=== PATIENT | female | born 1960 | race African-American/Black ===

== ENCOUNTER 2019-05-04 16:24 | Emergency (ER) | payer MEDICARE, MEDICAID ==
[2019-05-04 17:06] LABS: #Basophils 0.1 thou/uL (0.0-0.2); #Eosinphils 0.1 thou/uL (0.0-0.7); #Lymphocytes 3.3 thou/uL (1.20-3.40); #Monocytes 0.6 thou/uL (0.11-0.59); #Neutrophils 4.2 thou/uL (1.40-6.50); %Basophils 1.5 % (0.0-1.0); %Lymphocytes 39.8 % (21.0-51.0); %Monocytes 7.4 % (0.0-10.0); %Neutrophils 50.3 % (42.0-75.0); Hemoglobin 16.2 g/dL (12.0-16.0); Mean Corpuscular HGB CONC 33.3 g/dL (32.0-36.0); Mean Corpuscular Hemoglobin 31.5 pg (27.0-31.0); Mean Corpuscular Volume 94.6 fL (78.0-98.0); Mean Platelet Volume 7.2 fL (7.4-10.4); Platelet Count 277 thou/uL (130-400); RBC Distribution Width 12.6 % (11.5-14.5); Red Blood Cell (RBC) Count 5.16 mill/uL (4.20-5.40); White Blood Cell (WBC) Count 8.4 thou/uL (4.8-10.8)
--- NOTE | 2019-05-04 17:30 | RAD ---
PA AND LATERAL CHEST: 05/04/19 HISTORY: Cough for a few weeks. COMPARISON: 08/17/15 study. Heart size and mediastinum within normal limits. The lungs are clear of infiltrates. Calcified granul kierra is seen in the right middle lobe. IMPRESSION: No active intrathoracic disease. POS: [facility]
[2019-05-04 17:33] LABS: ALT (SGPT) 16 U/L (8-55); AST (SGOT) 18 U/L (5-34); Albumin 3.7 g/dL (3.5-5.0); Alkaline Phosphatase 82 U/L (40-110); Anion Gap 13 mmol/L (10-20); BUN (Urea Nitrogen) 14 mg/dL (9.8-20.1); Bilirubin, Total 0.3 mg/dL (0.2-1.2); Calc. Creatinine Clearance 0 mL/min (70-130); Calcium 9.8 mg/dL (7.8-10.44); Carbon Dioxide 23 mmol/L (22-29); Chloride 106 mmol/L (98-107); Estimated GFR-MDRD 79; Glucose 167 mg/dL (70-105); Potassium 3.8 mmol/L (3.5-5.1); Protein, Total 7.7 g/dL (6.0-8.3); Sodium 138 mmol/L (136-145)
[2019-05-04 21:25] LABS: Bacteria/HPF 2+ HPF (None Seen); Bilirubin Negative (Negative); Blood, Urine 1+ (Negative); Clarity Turbid (Clear); Glucose, Urine (Dipstick) Normal (Negative); Leukocyte 500 Leu/uL (Negative); Nitrite Negative (Negative); Protein, Urine (Dipstick) 300 mg/dL (Neg-Trace); RBC/HPF 0-3 HPF (0-3); Urobilinogen Normal mg/dL (Less than 2); WBC/HPF Greater than 50 HPF (0-3)
== END 2019-05-04 21:33 | disposition home or self-care (01) ==
LOC: ERS 16:24
DX: J18.9 Pneumonia, unspecified organism (principal); E11.9 Type 2 diabetes mellitus without complications; I10 Essential (primary) hypertension; G43.909 Migraine, unspecified, not intractable, without status migrainosus; F41.9 Anxiety disorder, unspecified; F17.210 Nicotine dependence, cigarettes, uncomplicated; Z79.899 Other long term (current) drug therapy; Z79.4 Long term (current) use of insulin
CPT/HCPCS: 36415; 71046; 80053; 81003; 81015; 85025

== ENCOUNTER 2020-12-26 16:19 | Emergency (ER) | payer MEDICARE, MEDICAID ==
[~2020-12-26 16:19] MED LIST: Iopamidol-370 76% 500 ML 1 ML ONE
[2020-12-26 19:49] LABS: ALT (SGPT) 13 U/L (8-55); AST (SGOT) 20 U/L (5-34); Alkaline Phosphatase 87 U/L (40-110); Anion Gap 14 mmol/L (10-20); BUN (Urea Nitrogen) 22 mg/dL (9.8-20.1); Bilirubin, Total 0.2 mg/dL (0.2-1.2); Calc. Creatinine Clearance 0 mL/min (70-130); Carbon Dioxide 23 mmol/L (23-31); Chloride 105 mmol/L (98-107); Globulin 3.9 g/dL (2.4-3.5); Glucose 157 mg/dL (80-115); Lipase 112 U/L (8-78); Potassium 5.2 mmol/L (3.5-5.1); Protein, Total 6.9 g/dL (5.8-8.1); Sodium 137 mmol/L (136-145)
== END 2020-12-26 22:00 | disposition home or self-care (01) ==
LOC: ERS 16:19
DX: I80.8 Phlebitis and thrombophlebitis of other sites (principal); L03.211 Cellulitis of face; E11.9 Type 2 diabetes mellitus without complications; I10 Essential (primary) hypertension; G43.909 Migraine, unspecified, not intractable, without status migrainosus; F17.210 Nicotine dependence, cigarettes, uncomplicated
CPT/HCPCS: 70487; 80053; 83605; 83690; 87040; Q9967

== ENCOUNTER 2022-01-21 22:28 | Inpatient (IN) | payer MEDICARE, MEDICAID ==
[2022-01-21] MEDS ORDERED: Morphine 4 MG/ML VIAL ONE (23:06)
[2022-01-21] MEDS ORDERED: Nitroglycerin 0.4 MG TAB 1 EACH ONE ×2 (23:09→23:12)
[2022-01-21] MEDS ORDERED: Furosemide 40 MG/4 ML VIAL ONE (23:09)
[2022-01-21 23:28] LABS: #Basophils 0.1 thou/uL (0.0-0.2); #Eosinphils 0.1 thou/uL (0.0-0.7); #Lymphocytes 1.5 thou/uL (1.20-3.40); #Monocytes 0.6 thou/uL (0.11-0.59); %Basophils 0.6 % (0.0-1.0); %Eosinophils 1.3 % (0.0-10.0); %Lymphocytes 14.1 % (21.0-51.0); %Neutrophils 77.9 % (42.0-75.0); Hemoglobin 12.5 g/dL (12.0-16.0); Mean Corpuscular HGB CONC 32.1 g/dL (32.0-36.0); Mean Corpuscular Hemoglobin 31.2 pg (27.0-31.0); Mean Corpuscular Volume 97.1 fL (78.0-98.0); Mean Platelet Volume 7.6 fL (7.4-10.4); Platelet Count 284 thou/uL (130-400); RBC Distribution Width 13.4 % (11.5-14.5); Red Blood Cell (RBC) Count 4.02 mill/uL (4.20-5.40); White Blood Cell (WBC) Count 10.3 thou/uL (4.8-10.8)
[2022-01-21 23:51] LABS: ALT (SGPT) 10 U/L (8-55); AST (SGOT) 23 U/L (5-34); Albumin 2.3 g/dL (3.4-4.8); Alkaline Phosphatase 98 U/L (40-110); Anion Gap 11 mmol/L (10-20); BUN (Urea Nitrogen) 22 mg/dL (9.8-20.1); Bilirubin, Total 0.2 mg/dL (0.2-1.2); Calc. Creatinine Clearance 0 mL/min (70-130); Calcium 8.5 mg/dL (7.8-10.44); Carbon Dioxide 26 mmol/L (23-31); Chloride 108 mmol/L (98-107); Estimated GFR 31; Globulin 3.4 g/dL (2.4-3.5); Glucose 230 mg/dL (80-115); Magnesium 1.7 mg/dL (1.6-2.6); Potassium 3.1 mmol/L (3.5-5.1); Protein, Total 5.7 g/dL (5.8-8.1); Sodium 142 mmol/L (136-145)
[2022-01-21 23:52] LABS: Troponin I 0.265 ng/mL (< 0.028)
[2022-01-22] MEDS ORDERED: Potassium Chloride 20 MEQ/100 ML PREMIX BAG ONE (00:29)
[2022-01-22] MEDS ORDERED: Nitroglycerin 0.4 MG TAB 1 EACH ONE (00:29)
[2022-01-22] MEDS ORDERED: Potassium Chloride 20 MEQ TAB ONE (00:32)
[2022-01-22] MEDS ORDERED: Ondansetron ODT 4 MG TAB SL PRN (01:30)
[2022-01-22] MEDS ORDERED: Acetaminophen 325 MG TAB PO PRN (01:30)
[2022-01-22] MEDS ORDERED: Ondansetron PF 4 MG/2 ML Vial IVP PRN (01:30)
[2022-01-22] MEDS ORDERED: hydrALAZINE 25 MG TAB ONE (01:32)
[2022-01-22] MEDS ORDERED: Magnesium 2 GM/50 ML BAG (IN WATER) ONE (01:32)
[2022-01-22] MEDS ORDERED: hydrALAZINE 20 MG/ML VIAL ONE (01:37)
[2022-01-22 03:36] VITALS: BMI 27.7
[2022-01-22 04:37] LABS: Troponin I 0.358 ng/mL (< 0.028)
[2022-01-22 07:20] LABS: Troponin I 0.413 ng/mL (< 0.028)
[2022-01-22] MEDS ORDERED: Electrolyte Replacement Protocol 1 EACH FS SCH (08:00)
[2022-01-22] MEDS ORDERED: Electrolyte Replacement Protocol FS PRN (08:00)
[2022-01-22] MEDS ORDERED: Insulin Regular 300 UNITS/3 ML VIAL SC PRN (08:21)
[2022-01-22] MEDS ORDERED: Dextrose 5% in Water 1,000 ML IV PRN (08:21)
[2022-01-22] MEDS ORDERED: Dextrose 50% Abboject 50 ML SYRINGE SLOW IVP PRN (08:21)
[2022-01-22] MEDS ORDERED: Nitroglycerin 0.4 MG TAB (25 Tab Bottle) SL PRN (08:22)
[2022-01-22] MEDS ORDERED: Ipratropium Bromide 2.5 ml Neb NEB PRN (08:25)
[2022-01-22] MEDS ORDERED: tiZANidine HCl 4 MG TAB PO PRN (08:26)
[2022-01-22 08:38] LABS: Anion Gap 12 mmol/L (10-20); BUN (Urea Nitrogen) 20 mg/dL (9.8-20.1); Calc. Creatinine Clearance 50 mL/min (70-130); Calcium 8.4 mg/dL (7.8-10.44); Carbon Dioxide 25 mmol/L (23-31); Chloride 108 mmol/L (98-107); Estimated GFR 39; Glucose 131 mg/dL (80-115); Potassium 3.5 mmol/L (3.5-5.1); Sodium 141 mmol/L (136-145)
[2022-01-22] MEDS ORDERED: Potassium Chloride 20 MEQ TAB PO SCH ×2 (08:45→17:00)
[2022-01-22] MEDS ORDERED: Carvedilol 25 MG TAB PO SCH ×2 (09:00)
[2022-01-22] MEDS ORDERED: Aspirin 325 mg Enteric Coated Tablet PO SCH (09:00)
[2022-01-22] MEDS ORDERED: hydrALAZINE 20 MG/ML VIAL SLOW IVP PRN (09:12)
[2022-01-22] MEDS ORDERED: hydrALAZINE 25 MG TAB PO SCH ×2 (09:12→09:30)
[2022-01-22] MEDS: Aspirin 81 mg Enteric Coated Tablet PO SCH (09:13)
[2022-01-22] MEDS: traMADol HCl 50 MG TAB PO PRN ×2 (09:13→21:33)
[2022-01-22] MEDS ORDERED: Empagliflozin 10 MG TAB PO SCH ×2 (09:15→09:30)
[2022-01-22] MEDS ORDERED: Carvedilol 6.25 MG TAB PO SCH (09:30)
[2022-01-22] MEDS ORDERED: Nicotine 14 MG PATCH TD PRN (09:40)
[2022-01-22] MEDS ORDERED: diphenhydrAMINE 25 MG CAP PO PRN (11:16)
[2022-01-22] MEDS ORDERED: Senokot S 8.6-50 MG TAB PO PRN (11:17)
[2022-01-22] MEDS ORDERED: Calcium Carbonate 500 MG ChewTAB PO PRN (11:17)
[2022-01-22] MEDS ORDERED: Nitroglycerin 2% Ointment 1 INCH/1 GM Packet TOP SCH (14:00)
[2022-01-22] MEDS: hydrALAZINE 25 MG TAB PO SCH ×2 (14:26→21:35)
[2022-01-22] MEDS: Furosemide 20 MG/2 ML VIAL SLOW IVP SCH (14:27)
[2022-01-22] MEDS: Ipratropium Bromide 2.5 ml Neb NEB SCH ×4 (14:44→21:31)
[2022-01-22] MEDS ORDERED: Enoxaparin Sodium 40 MG/0.4 ML SYRINGE SC SCH (21:00)
[2022-01-22] MEDS: Heparin 5,000 UNITS/ML VIAL SC SCH (21:30)
[2022-01-22] MEDS: Erythromycin Base 0.5% Oint 1 GM TUBE EA EYE SCH (21:31)
[2022-01-22] MEDS: Carvedilol 6.25 MG TAB PO SCH (21:34)
[2022-01-22] MEDS: Atorvastatin Calcium 10 MG TAB PO SCH (21:34)
[2022-01-22] MEDS: Methimazole 5 MG TAB PO SCH (21:36)
[2022-01-22] MEDS: Insulin Glargine 30 UNITS/0.3 ML VIAL SC SCH (22:54)
[2022-01-23] MEDS: Ipratropium Bromide 2.5 ml Neb NEB SCH ×2 (02:23→07:25)
[2022-01-23] MEDS: Acetaminophen 325 MG TAB PO PRN (04:21)
[2022-01-23] MEDS: Furosemide 20 MG/2 ML VIAL SLOW IVP SCH ×2 (04:21→13:15)
[2022-01-23 05:14] LABS: #Basophils 0.1 thou/uL (0.0-0.2); #Eosinphils 0.2 thou/uL (0.0-0.7); #Lymphocytes 2.1 thou/uL (1.20-3.40); #Monocytes 0.8 thou/uL (0.11-0.59); #Neutrophils 5.6 thou/uL (1.40-6.50); %Basophils 0.6 % (0.0-1.0); %Eosinophils 2.3 % (0.0-10.0); %Lymphocytes 23.7 % (21.0-51.0); %Monocytes 8.8 % (0.0-10.0); %Neutrophils 64.6 % (42.0-75.0); Hemoglobin 12.3 g/dL (12.0-16.0); Mean Corpuscular HGB CONC 31.9 g/dL (32.0-36.0); Mean Corpuscular Hemoglobin 31.1 pg (27.0-31.0); Mean Corpuscular Volume 97.5 fL (78.0-98.0); Mean Platelet Volume 7.7 fL (7.4-10.4); Platelet Count 298 thou/uL (130-400); RBC Distribution Width 13.8 % (11.5-14.5); Red Blood Cell (RBC) Count 3.95 mill/uL (4.20-5.40); White Blood Cell (WBC) Count 8.7 thou/uL (4.8-10.8)
[2022-01-23 05:59] LABS: Anion Gap 9 mmol/L (10-20); BUN (Urea Nitrogen) 19 mg/dL (9.8-20.1); Calc. Creatinine Clearance 51 mL/min (70-130); Calcium 8.3 mg/dL (7.8-10.44); Carbon Dioxide 27 mmol/L (23-31); Chloride 107 mmol/L (98-107); Estimated GFR 40; Glucose 106 mg/dL (80-115); Magnesium 1.9 mg/dL (1.6-2.6); Potassium 3.2 mmol/L (3.5-5.1); Sodium 140 mmol/L (136-145)
[2022-01-23] MEDS ORDERED: HYDROcodone/Acetaminophen 5/325 mg Tablet PO SCH (06:00)
[2022-01-23] MEDS ORDERED: Potassium Chloride 20 MEQ TAB PO SCH (08:00)
[2022-01-23] MEDS ORDERED: Magnesium 2 GM/50 ML(in water) 2 GM in Premix Bag 1 BAG IVPB SCH (08:00)
[2022-01-23] MEDS: Carvedilol 6.25 MG TAB PO SCH (08:16)
[2022-01-23] MEDS: hydrALAZINE 25 MG TAB PO SCH ×3 (08:17→20:31)
[2022-01-23] MEDS: Empagliflozin 10 MG TAB PO SCH (08:18)
[2022-01-23] MEDS: Aspirin 81 mg Enteric Coated Tablet PO SCH (08:18)
[2022-01-23] MEDS: Heparin 5,000 UNITS/ML VIAL SC SCH ×2 (08:30→20:30)
[2022-01-23] MEDS: traMADol HCl 50 MG TAB PO PRN ×3 (08:35→16:31)
[2022-01-23] MEDS: Methimazole 5 MG TAB PO SCH ×2 (09:21→20:31)
[2022-01-23] MEDS: Erythromycin Base 0.5% Oint 1 GM TUBE EA EYE SCH ×2 (09:22→20:30)
[2022-01-23] MEDS ORDERED: Ipratropium Bromide 2.5 ml Neb NEB PRN (10:17)
[2022-01-23] MEDS ORDERED: Carvedilol 6.25 MG TAB PO SCH (17:00)
[2022-01-23] MEDS: Carvedilol 25 MG TAB PO SCH (20:29)
[2022-01-23] MEDS: Atorvastatin Calcium 10 MG TAB PO SCH (20:32)
[2022-01-23] MEDS: Insulin Glargine 30 UNITS/0.3 ML VIAL SC SCH (20:34)
[2022-01-23] MEDS: Artificial Tear Sol 15 ML BOT EA EYE PRN (20:41)
[2022-01-24 06:11] LABS: Anion Gap 15 mmol/L (10-20); BUN (Urea Nitrogen) 18 mg/dL (9.8-20.1); Calc. Creatinine Clearance 51 mL/min (70-130); Calcium 8.5 mg/dL (7.8-10.44); Carbon Dioxide 23 mmol/L (23-31); Chloride 104 mmol/L (98-107); Estimated GFR 43; Glucose 116 mg/dL (80-115); Potassium 3.1 mmol/L (3.5-5.1); Sodium 139 mmol/L (136-145)
[2022-01-24] MEDS ORDERED: Potassium Chloride 20 MEQ TAB PO SCH (08:15)
[2022-01-24] MEDS: hydrALAZINE 25 MG TAB PO SCH ×3 (09:43→21:24)
[2022-01-24] MEDS: Erythromycin Base 0.5% Oint 1 GM TUBE EA EYE SCH ×2 (09:43→21:23)
[2022-01-24] MEDS: Carvedilol 25 MG TAB PO SCH ×2 (09:43→21:23)
[2022-01-24] MEDS: Heparin 5,000 UNITS/ML VIAL SC SCH ×2 (09:44→21:24)
[2022-01-24] MEDS: Furosemide 20 MG TAB PO SCH (09:44)
[2022-01-24] MEDS: Methimazole 5 MG TAB PO SCH ×2 (09:44→21:37)
[2022-01-24] MEDS: Empagliflozin 10 MG TAB PO SCH (09:44)
[2022-01-24] MEDS: Aspirin 81 mg Enteric Coated Tablet PO SCH (09:44)
[2022-01-24] MEDS: Artificial Tear Sol 15 ML BOT EA EYE PRN (09:45)
[2022-01-24] MEDS ORDERED: HumaLOG 300 UNITS/3 ML VIAL SC PRN (12:55)
[2022-01-24] MEDS ORDERED: Nicotine 7 MG PATCH TD PRN (13:45)
[2022-01-24] MEDS: Acetaminophen 325 MG TAB PO PRN (16:15)
[2022-01-24] MEDS ORDERED: traMADol HCl 50 MG TAB PO PRN (16:16)
[2022-01-24 20:50] VITALS: BP 177/94; TEMP 97.5
[2022-01-24] MEDS: Atorvastatin Calcium 10 MG TAB PO SCH (21:23)
[2022-01-24] MEDS: Insulin Glargine 30 UNITS/0.3 ML VIAL SC SCH (21:25)
[2022-01-25 06:17] LABS: Anion Gap 9 mmol/L (10-20); BUN (Urea Nitrogen) 20 mg/dL (9.8-20.1); Calc. Creatinine Clearance 51 mL/min (70-130); Calcium 8.3 mg/dL (7.8-10.44); Carbon Dioxide 26 mmol/L (23-31); Cardiac Risk 4.5 (Less than 4.5); Chloride 106 mmol/L (98-107); Cholesterol 237 mg/dl (< 200 Desired); Estimated GFR 43; Glucose 117 mg/dL (80-115); HDL Cholesterol 53 mg/dL (>60 Neg Risk); LDL Cholesterol, Calculated 158 mg/dL; Potassium 3.2 mmol/L (3.5-5.1); Sodium 138 mmol/L (136-145); Triglycerides 129 mg/dL (Less than 150)
[2022-01-25] MEDS ORDERED: Potassium Chloride 20 MEQ TAB PO SCH ×2 (08:00)
[2022-01-25] MEDS: Carvedilol 25 MG TAB PO SCH (08:20)
[2022-01-25] MEDS: Empagliflozin 10 MG TAB PO SCH (08:20)
[2022-01-25] MEDS: Erythromycin Base 0.5% Oint 1 GM TUBE EA EYE SCH (08:20)
[2022-01-25] MEDS: Aspirin 81 mg Enteric Coated Tablet PO SCH (08:20)
[2022-01-25] MEDS: Methimazole 5 MG TAB PO SCH (08:21)
[2022-01-25] MEDS: hydrALAZINE 25 MG TAB PO SCH (08:21)
[2022-01-25] MEDS: Heparin 5,000 UNITS/ML VIAL SC SCH (08:21)
[2022-01-25] MEDS: Furosemide 20 MG TAB PO SCH (08:21)
[2022-01-25] MEDS ORDERED: FLU VACC QS2022-23(6MOS UP)/PF 60 MCG/0.5 ML SYRINGE IM ONE ×2 (09:00→12:00)
[2022-01-25] MEDS ORDERED: Rosuvastatin 20 MG TAB PO SCH (21:00)
== END 2022-01-25 12:14 | disposition home or self-care (01) | DRG 280 ==
LOC: ERS 22:28 → NEURO 01-22 01:16
PROVIDERS: ADMIT Internal Medicine; ATTEND Internal Medicine
DX: I13.0 Hypertensive heart and chronic kidney disease with heart failure and stage 1 through stage 4 chronic kidney disease, or unspecified chronic kidney disease (principal); I50.43 Acute on chronic combined systolic (congestive) and diastolic (congestive) heart failure; I21.A1 Myocardial infarction type 2; J96.01 Acute respiratory failure with hypoxia; N17.9 Acute kidney failure, unspecified; I16.1 Hypertensive emergency; I16.0 Hypertensive urgency; E87.6 Hypokalemia; E78.5 Hyperlipidemia, unspecified; E11.22 Type 2 diabetes mellitus with diabetic chronic kidney disease; F17.210 Nicotine dependence, cigarettes, uncomplicated; G89.4 Chronic pain syndrome; Z20.822 Contact with and (suspected) exposure to COVID-19; G43.909 Migraine, unspecified, not intractable, without status migrainosus; M54.50 Low back pain, unspecified; F41.9 Anxiety disorder, unspecified; N18.30 Chronic kidney disease, stage 3 unspecified; E83.42 Hypomagnesemia; E05.00 Thyrotoxicosis with diffuse goiter without thyrotoxic crisis or storm; Z79.84 Long term (current) use of oral hypoglycemic drugs; Z71.6 Tobacco abuse counseling; Z79.899 Other long term (current) drug therapy; Z90.49 Acquired absence of other specified parts of digestive tract; Z98.51 Tubal ligation status; Z82.49 Family history of ischemic heart disease and other diseases of the circulatory system; Z80.3 Family history of malignant neoplasm of breast
CPT/HCPCS: 36415; 36416; 70450; 71045; 80048; 80053; 80061; 83735; 83880; 84439; 84443; 84484; 85025; 93005; 93306; 93798; 94640; 94760; 96374; 96375; 97139; J0360; J1644; J1815; J1940; J2270; J3475; J3480; U0003; U0005

== ENCOUNTER 2022-10-26 11:55 | Observation (INO) | payer OTHER ==
[2022-10-26 12:46] LABS: #Eosinphils 0.1 thou/uL (0.0-0.7); #Monocytes 0.6 thou/uL (0.11-0.59); #Neutrophils 3.6 thou/uL (1.40-6.50); %Basophils 0.3 % (0.0-1.0); %Eosinophils 1.9 % (0.0-10.0); %Monocytes 9.8 % (0.0-10.0); %Neutrophils 58.5 % (42.0-75.0); Hematocrit 29.9 % (36.0-47.0); Mean Corpuscular HGB CONC 33.4 g/dL (32.0-36.0); Mean Corpuscular Hemoglobin 29.4 pg (27.0-31.0); Mean Corpuscular Volume 87.9 fl (78.0-98.0); Mean Platelet Volume 10.3 fL (7.4-10.4); Platelet Count 158 10x3/uL (130-400); RBC Distribution Width 12.7 % (11.5-14.5); White Blood Cell (WBC) Count 6.2 10x3/uL (4.8-10.8)
[2022-10-26 13:09] LABS: ALT (SGPT) 21 U/L (8-55); AST (SGOT) 18 U/L (5-34); Albumin 3.1 g/dL (3.4-4.8); Alkaline Phosphatase 66 U/L (40-110); Anion Gap 15 mmol/L (10-20); BUN (Urea Nitrogen) 85 mg/dL (9.8-20.1); Bilirubin, Total 0.3 mg/dL (0.2-1.2); Calc. Creatinine Clearance 0 mL/min (70-130); Calcium 9.5 mg/dL (7.8-10.44); Carbon Dioxide 20 mmol/L (23-31); Chloride 107 mmol/L (98-107); Estimated GFR 16; Globulin 3.9 g/dL (2.4-3.5); Glucose 287 mg/dL (80-115); Potassium 5.2 mmol/L (3.5-5.1); Sodium 137 mmol/L (136-145)
[2022-10-26 13:27] LABS: Free T4 (Free Thyroxine) 2.67 ng/dL (0.70-1.48); Thyroid Stimulating Hormone Less than 0.0025 uIU/mL (0.35-4.94)
[2022-10-26 13:38] LABS: T4 17.54 ug/dL (4.87-11.72)
[2022-10-26] MEDS ORDERED: Acetaminophen 650 MG Suppository PR PRN (16:34)
[2022-10-26] MEDS ORDERED: Acetaminophen 325 MG TAB PO PRN (16:34)
[2022-10-26] MEDS ORDERED: Ondansetron ODT 4 MG TAB PO PRN (16:34)
[2022-10-26] MEDS ORDERED: Ondansetron PF 4 MG/2 ML Vial IVP PRN (16:34)
[2022-10-26] MEDS ORDERED: Dextrose 5% in Water 1,000 ML IV PRN (17:04)
[2022-10-26] MEDS ORDERED: Insulin Regular 300 UNITS/3 ML VIAL SC PRN (17:04)
[2022-10-26] MEDS ORDERED: Glucagon 1 MG/ML KIT IM PRN (17:04)
[2022-10-26] MEDS ORDERED: Dextrose 50% Abboject 50 ML SYRINGE SLOW IVP PRN (17:04)
[2022-10-26 18:07] LABS: Anion Gap 15 mmol/L (10-20); BUN (Urea Nitrogen) 79 mg/dL (9.8-20.1); Calc. Creatinine Clearance 0 mL/min (70-130); Calcium 9.4 mg/dL (7.8-10.44); Carbon Dioxide 17 mmol/L (23-31); Chloride 111 mmol/L (98-107); Estimated GFR 19; Glucose 379 mg/dL (80-115); Potassium 5.2 mmol/L (3.5-5.1); Sodium 138 mmol/L (136-145)
[2022-10-26 18:20] VITALS: BMI 21.2
[2022-10-26] MEDS: Sodium Chloride 0.9% 1,000 ML IV SCH (18:43)
[2022-10-26] MEDS: Methimazole 5 MG TAB PO SCH (21:02)
[2022-10-26] MEDS ORDERED: Carvedilol 25 MG TAB PO SCH (21:45)
[2022-10-26] MEDS ORDERED: Amlodipine 10 MG TAB PO SCH (21:45)
[2022-10-27 00:31] LABS: Bacteria/HPF 1+ HPF (None Seen); Bilirubin Negative (Negative); Blood, Urine 1+ (Negative); CAUTI Indications for Culture Pelvic or flank pain; Clarity Clear (Clear); Glucose, Urine (Dipstick) Greater than 1000 mg/dL (Negative); Ketone, Urine Negative (Negative); Leukocyte 500 Leu/uL (Negative); Nitrite Negative (Negative); Protein, Urine (Dipstick) 70 mg/dL (Neg-Trace); Specific Gravity, Urine 1.009 (1.002-1.036); Squamous Epithelial 0-3 HPF (0-3); Urobilinogen Normal mg/dL (Less than 2); WBC/HPF Greater than 50 HPF (0-3); pH, Urine 6.5 (5.0-9.0)
[2022-10-27 00:33] LABS: Urine Culture Reflex Yes Yes
[2022-10-27 01:18] LABS: Potassium, Urine 16.1 mmol/L
[2022-10-27] MEDS: Sodium Chloride 0.9% 1,000 ML IV SCH (05:20)
[2022-10-27 07:47] VITALS: TEMP 98.1
[2022-10-27 08:07] LABS: #Eosinphils 0.1 thou/uL (0.0-0.7); #Monocytes 0.6 thou/uL (0.11-0.59); #Neutrophils 2.6 thou/uL (1.40-6.50); %Basophils 0.2 % (0.0-1.0); %Eosinophils 2.5 % (0.0-10.0); %Lymphocytes 33.9 % (21.0-51.0); %Monocytes 12.3 % (0.0-10.0); %Neutrophils 50.9 % (42.0-75.0); Hematocrit 30.1 % (36.0-47.0); Hemoglobin 9.9 g/dL (12.0-16.0); Mean Corpuscular HGB CONC 32.9 g/dL (32.0-36.0); Mean Corpuscular Hemoglobin 29.3 pg (27.0-31.0); Mean Corpuscular Volume 89.1 fl (78.0-98.0); Mean Platelet Volume 9.9 fL (7.4-10.4); Platelet Count 148 10x3/uL (130-400); RBC Distribution Width 12.7 % (11.5-14.5); Red Blood Cell (RBC) Count 3.38 mill/uL (4.20-5.40); White Blood Cell (WBC) Count 5.1 10x3/uL (4.8-10.8)
[2022-10-27 08:32] LABS: Anion Gap 12 mmol/L (10-20); BUN (Urea Nitrogen) 59 mg/dL (9.8-20.1); Calc. Creatinine Clearance 28 mL/min (70-130); Carbon Dioxide 21 mmol/L (23-31); Chloride 112 mmol/L (98-107); Estimated GFR 27; Glucose 160 mg/dL (80-115); Potassium 4.4 mmol/L (3.5-5.1); Sodium 141 mmol/L (136-145)
[2022-10-27] MEDS ORDERED: Amlodipine 10 MG TAB PO SCH (09:00)
[2022-10-27] MEDS ORDERED: Carvedilol 25 MG TAB PO SCH (09:00)
[2022-10-27] MEDS: hydrALAZINE 25 MG TAB PO SCH ×2 (09:18→16:48)
[2022-10-27] MEDS: Methimazole 5 MG TAB PO SCH (09:29)
[2022-10-27 16:43] VITALS: BP 161/73
== END 2022-10-27 17:05 | disposition home or self-care (01) ==
LOC: ERS 11:55 → T4-B 14:49 → INTOOBSV 14:49
PROVIDERS: ADMIT Internal Medicine; ATTEND Internal Medicine
DX: R13.10 Dysphagia, unspecified (principal); E04.1 Nontoxic single thyroid nodule; I13.0 Hypertensive heart and chronic kidney disease with heart failure and stage 1 through stage 4 chronic kidney disease, or unspecified chronic kidney disease; N18.9 Chronic kidney disease, unspecified; I50.30 Unspecified diastolic (congestive) heart failure; E11.9 Type 2 diabetes mellitus without complications; E78.5 Hyperlipidemia, unspecified; E87.5 Hyperkalemia; E87.20 Acidosis, unspecified; E86.1 Hypovolemia; D63.1 Anemia in chronic kidney disease; E05.00 Thyrotoxicosis with diffuse goiter without thyrotoxic crisis or storm; F17.200 Nicotine dependence, unspecified, uncomplicated; Z90.49 Acquired absence of other specified parts of digestive tract; Z98.51 Tubal ligation status; Z79.4 Long term (current) use of insulin; Z79.899 Other long term (current) drug therapy
CPT/HCPCS: 70490; 76770; 80048 ×2; 81001; 82436; 82962; 84133; 84300; 84480; 85025; 87086; 94760; 96360; 96361; 99285; G0378 ×3; 36415; 36416; 80053; 84436; 84439; 84443; J7050

== ENCOUNTER 2022-11-22 08:44 | Inpatient (IN) | payer OTHER ==
[2022-11-22 09:51] LABS: #Monocytes 0.6 thou/uL (0.11-0.59); #Neutrophils 4.2 thou/uL (1.40-6.50); %Monocytes 10.3 % (0.0-10.0); %Neutrophils 76.3 % (42.0-75.0); Hematocrit 33.5 % (36.0-47.0); Hemoglobin 10.8 g/dL (12.0-16.0); Mean Corpuscular HGB CONC 32.2 g/dL (32.0-36.0); Mean Corpuscular Volume 90.1 fl (78.0-98.0); Mean Platelet Volume 9.4 fL (7.4-10.4); Platelet Count 154 10x3/uL (130-400); RBC Distribution Width 13.2 % (11.5-14.5); Red Blood Cell (RBC) Count 3.72 mill/uL (4.20-5.40); White Blood Cell (WBC) Count 5.6 10x3/uL (4.8-10.8)
[2022-11-22] MEDS ORDERED: Ondansetron PF 4 MG/2 ML Vial ONE (10:12)
[2022-11-22 10:19] LABS: ALT (SGPT) 26 U/L (8-55); AST (SGOT) 35 U/L (5-34); Albumin 2.9 g/dL (3.4-4.8); Alkaline Phosphatase 63 U/L (40-110); Anion Gap 15 mmol/L (10-20); BUN (Urea Nitrogen) 30 mg/dL (9.8-20.1); Bilirubin, Total 0.4 mg/dL (0.2-1.2); CK (CPK) 62 U/L (29-168); Calc. Creatinine Clearance 0 mL/min (70-130); Calcium 9.4 mg/dL (7.8-10.44); Carbon Dioxide 18 mmol/L (23-31); Chloride 108 mmol/L (98-107); Estimated GFR 40; Globulin 3.8 g/dL (2.4-3.5); Glucose 230 mg/dL (80-115); Lipase 127 U/L (8-78); Magnesium 1.5 mg/dL (1.6-2.6); Potassium 3.8 mmol/L (3.5-5.1); Protein, Total 6.7 g/dL (5.8-8.1); Sodium 137 mmol/L (136-145)
[2022-11-22 10:35] LABS: T4 16.12 ug/dL (4.87-11.72); Thyroid Stimulating Hormone Less than 0.0025 uIU/mL (0.35-4.94)
[2022-11-22] MEDS ORDERED: Iopamidol-370 76% 500 ML MDV (1 ML CHARGE) ONE (11:08)
[2022-11-22 11:16] LABS: Bacteria/HPF 1+ HPF (None Seen); Bilirubin Negative (Negative); Blood, Urine 2+ (Negative); CAUTI Indications for Culture Dysuria,urgency,freq; Clarity Clear (Clear); Glucose, Urine (Dipstick) 500 mg/dL (Negative); Ketone, Urine 10 mg/dL (Negative); Leukocyte 250 Leu/uL (Negative); Nitrite Negative (Negative); Protein, Urine (Dipstick) 600 mg/dL (Neg-Trace); Specific Gravity, Urine 1.019 (1.002-1.036); Squamous Epithelial 0-3 HPF (0-3); Urobilinogen Normal mg/dL (Less than 2); pH, Urine 6.5 (5.0-9.0)
[2022-11-22 11:19] LABS: Urine Culture Reflex No No
[2022-11-22] MEDS ORDERED: cefTRIAXone (ROCEPHIN) 1 GM VIAL ONE (11:39)
[2022-11-22 11:41] LABS: SARS-CoV-2 NAA Rapid Test DETECTED (NotDetected)
[2022-11-22] MEDS ORDERED: Acetaminophen 325 MG TAB PO PRN (14:19)
[2022-11-22] MEDS ORDERED: Glucagon 1 MG/ML KIT IM PRN (14:19)
[2022-11-22] MEDS ORDERED: Ondansetron PF 4 MG/2 ML Vial IVP PRN (14:19)
[2022-11-22] MEDS ORDERED: Dextrose 5% in Water 1,000 ML IV PRN (14:19)
[2022-11-22] MEDS ORDERED: HumaLOG 300 UNITS/3 ML VIAL SC PRN ×2 (14:19)
[2022-11-22] MEDS ORDERED: Ondansetron ODT 4 MG TAB PO PRN (14:19)
[2022-11-22] MEDS ORDERED: Dextrose 50% Abboject 50 ML SYRINGE SLOW IVP PRN (14:19)
[2022-11-22] MEDS ORDERED: Communication Order-Pharmacy FS SCH (14:19)
[2022-11-22] MEDS ORDERED: Artificial Tear Sol 15 ML BOT EA EYE PRN (14:26)
[2022-11-22] MEDS ORDERED: hydrALAZINE 20 MG/ML VIAL SLOW IVP PRN ×2 (14:27→16:13)
[2022-11-22] MEDS ORDERED: guaiFENesin/Codeine 200 mg/20 mg 10 ml Cup PO PRN (14:29)
[2022-11-22] MEDS ORDERED: Magnesium 2 GM/50 ML(in water) 2 GM in Premix Bag 1 BAG IVPB SCH (14:30)
[2022-11-22] MEDS ORDERED: cefTRIAXone\\ROCEPHIN 1 GM in Sodium Chloride 0.9% 100 ML IVPB SCH (14:30)
[2022-11-22] MEDS ORDERED: Sodium Bicarb 50 MEQ/50 ML Abboject 8.4% SYRINGE IVP SCH (14:45)
[2022-11-22 15:16] VITALS: BMI 20.3
[2022-11-22] MEDS: Lactated Ringer's 1,000 ML IV SCH (15:46)
[2022-11-22] MEDS: hydrALAZINE 25 MG TAB PO SCH ×2 (15:53→21:56)
[2022-11-22] MEDS ORDERED: Sodium Bicarb 50 MEQ/50 ML VIAL IVP SCH (16:00)
[2022-11-22] MEDS: Benzonatate 100 MG CAP PO SCH ×2 (16:23→21:55)
[2022-11-22] MEDS: HumaLOG 300 UNITS/3 ML VIAL SC SCH (16:24)
[2022-11-22 17:46] LABS: Glucose 204 mg/dL (80-115)
[2022-11-22 21:42] LABS: Glucose 186 mg/dL (80-115)
[2022-11-22] MEDS: Insulin Glargine 30 UNITS/0.3 ML VIAL SC SCH (21:54)
[2022-11-22] MEDS: Sacubitril 24MG/Valsartan 26 MG TAB PO SCH (21:55)
[2022-11-22] MEDS: metroNIDAZOLE 500 MG in Premix Bag 1 BAG IVPB SCH (21:55)
[2022-11-22] MEDS: Carvedilol 25 MG TAB PO SCH (21:56)
[2022-11-22] MEDS: Famotidine 20 MG TAB PO SCH (21:56)
[2022-11-22] MEDS: Atorvastatin Calcium 20 MG TAB PO SCH (21:56)
[2022-11-22] MEDS: Methimazole 5 MG TAB PO SCH (21:56)
[2022-11-22] MEDS: Heparin 5,000 UNITS/ML VIAL SC SCH (21:57)
[2022-11-23] MEDS: Lactated Ringer's 1,000 ML IV SCH ×2 (04:34→20:32)
[2022-11-23] MEDS: HYDROcodone/Acetaminophen 5/325 mg Tablet PO PRN ×2 (06:11→20:43)
[2022-11-23] MEDS: metroNIDAZOLE 500 MG in Premix Bag 1 BAG IVPB SCH ×3 (06:17→20:51)
[2022-11-23 06:43] LABS: #Monocytes 0.5 thou/uL (0.11-0.59); #Neutrophils 2.3 thou/uL (1.40-6.50); %Monocytes 10.9 % (0.0-10.0); %Neutrophils 53.9 % (42.0-75.0); Hemoglobin 9.9 g/dL (12.0-16.0); Mean Corpuscular HGB CONC 31.9 g/dL (32.0-36.0); Mean Corpuscular Hemoglobin 28.9 pg (27.0-31.0); Mean Corpuscular Volume 90.6 fl (78.0-98.0); Mean Platelet Volume 9.7 fL (7.4-10.4); Platelet Count 148 10x3/uL (130-400); RBC Distribution Width 13.3 % (11.5-14.5); Red Blood Cell (RBC) Count 3.42 mill/uL (4.20-5.40); White Blood Cell (WBC) Count 4.2 10x3/uL (4.8-10.8)
[2022-11-23 06:53] LABS: Hemoglobin A1c 7.8 % (4.0-6.0)
[2022-11-23 07:11] LABS: Anion Gap 11 mmol/L (10-20); BUN (Urea Nitrogen) 32 mg/dL (9.8-20.1); Calc. Creatinine Clearance 37 mL/min (70-130); Calcium 8.5 mg/dL (7.8-10.44); Carbon Dioxide 18 mmol/L (23-31); Cardiac Risk 4.3 (Less than 4.5); Chloride 111 mmol/L (98-107); Cholesterol 78 mg/dl (< 200 Desired); Estimated GFR 40; Glucose 134 mg/dL (80-115); HDL Cholesterol 18 mg/dL (>60 Neg Risk); LDL Cholesterol, Calculated 28 mg/dL; Magnesium 1.9 mg/dL (1.6-2.6); Potassium 3.4 mmol/L (3.5-5.1); Sodium 137 mmol/L (136-145); Triglycerides 160 mg/dL (Less than 150)
[2022-11-23 07:52] LABS: Glucose 134 mg/dL (80-115)
[2022-11-23] MEDS: Heparin 5,000 UNITS/ML VIAL SC SCH ×2 (08:38→20:30)
[2022-11-23] MEDS: Amlodipine 10 MG TAB PO SCH (08:43)
[2022-11-23] MEDS: Furosemide 20 MG TAB PO SCH (08:43)
[2022-11-23] MEDS: Carvedilol 25 MG TAB PO SCH ×2 (08:43→20:29)
[2022-11-23] MEDS: Famotidine 20 MG TAB PO SCH ×2 (08:43→20:29)
[2022-11-23] MEDS: Empagliflozin 10 MG TAB PO SCH (08:43)
[2022-11-23] MEDS: hydrALAZINE 25 MG TAB PO SCH ×3 (08:43→20:30)
[2022-11-23] MEDS: Benzonatate 100 MG CAP PO SCH ×3 (08:44→20:29)
[2022-11-23] MEDS: Potassium Chloride 20 MEQ TAB PO SCH (08:44)
[2022-11-23] MEDS: Aspirin 81 mg Enteric Coated Tablet PO SCH (08:44)
[2022-11-23] MEDS: HumaLOG 300 UNITS/3 ML VIAL SC SCH ×3 (10:36→17:18)
[2022-11-23] MEDS: Sacubitril 24MG/Valsartan 26 MG TAB PO SCH ×2 (10:36→20:31)
[2022-11-23] MEDS: Methimazole 5 MG TAB PO SCH ×2 (10:36→20:30)
[2022-11-23 11:56] LABS: Glucose 163 mg/dL (80-115)
[2022-11-23] MEDS: cefTRIAXone\\ROCEPHIN 1 GM in Sodium Chloride 0.9% 100 ML IVPB SCH (12:51)
[2022-11-23] MEDS: Sodium Bicarbonate Tab 325 MG TAB PO SCH ×2 (15:04→20:32)
[2022-11-23 15:47] LABS: Campy jejuni + coli by PCR Negative (Negative); STEC Shiga Toxin 1+2 Negative (Negative); Salmonella spp. by PCR Negative (Negative); Shigella spp + EIEC by PCR Negative (Negative)
[2022-11-23] MEDS: Dicyclomine 10 MG CAP PO SCH ×2 (17:18→20:29)
[2022-11-23] MEDS: Atorvastatin Calcium 20 MG TAB PO SCH (20:29)
[2022-11-23] MEDS: Cholestyramine/Aspartame 4 gm Packet PO SCH (20:31)
[2022-11-23] MEDS: Insulin Glargine 30 UNITS/0.3 ML VIAL SC SCH (20:49)
[2022-11-24] MEDS: metroNIDAZOLE 500 MG in Premix Bag 1 BAG IVPB SCH ×3 (05:05→21:27)
[2022-11-24 08:18] LABS: #Monocytes 0.4 thou/uL (0.11-0.59); #Neutrophils 2.6 thou/uL (1.40-6.50); %Lymphocytes 26.1 % (21.0-51.0); %Monocytes 9.8 % (0.0-10.0); %Neutrophils 63.9 % (42.0-75.0); Hematocrit 28.6 % (36.0-47.0); Hemoglobin 9.2 g/dL (12.0-16.0); Mean Corpuscular HGB CONC 32.2 g/dL (32.0-36.0); Mean Corpuscular Hemoglobin 28.8 pg (27.0-31.0); Mean Corpuscular Volume 89.7 fl (78.0-98.0); Mean Platelet Volume 10.1 fL (7.4-10.4); Platelet Count 138 10x3/uL (130-400); RBC Distribution Width 13.3 % (11.5-14.5); Red Blood Cell (RBC) Count 3.19 mill/uL (4.20-5.40); White Blood Cell (WBC) Count 4.1 10x3/uL (4.8-10.8)
[2022-11-24 08:27] LABS: Glucose 110 mg/dL (80-115)
[2022-11-24 08:33] LABS: Anion Gap 11 mmol/L (10-20); BUN (Urea Nitrogen) 30 mg/dL (9.8-20.1); Calc. Creatinine Clearance 36 mL/min (70-130); Calcium 8.5 mg/dL (7.8-10.44); Carbon Dioxide 20 mmol/L (23-31); Cardiac Risk 3.9 (Less than 4.5); Chloride 112 mmol/L (98-107); Cholesterol 75 mg/dl (< 200 Desired); Estimated GFR 38; Glucose 114 mg/dL (80-115); HDL Cholesterol 19 mg/dL (>60 Neg Risk); Iron 66 ug/dL (50-170); Iron Binding Capacity, Total 114 mcg/dL (265-497); LDL Cholesterol, Calculated 24 mg/dL; Magnesium 1.8 mg/dL (1.6-2.6); Potassium 3.6 mmol/L (3.5-5.1); Sodium 139 mmol/L (136-145); Triglycerides 159 mg/dL (Less than 150)
[2022-11-24] MEDS: Sodium Bicarbonate Tab 325 MG TAB PO SCH (09:18)
[2022-11-24] MEDS: Zinc Sulfate 220 MG CAP PO SCH (09:21)
[2022-11-24] MEDS: Cholecalciferol (Vitamin D3) 400 UNITS TAB PO SCH (09:21)
[2022-11-24] MEDS: Aspirin 81 mg Enteric Coated Tablet PO SCH (09:21)
[2022-11-24] MEDS: Empagliflozin 10 MG TAB PO SCH (09:21)
[2022-11-24] MEDS: Dicyclomine 10 MG CAP PO SCH ×4 (09:21→21:26)
[2022-11-24] MEDS: Benzonatate 100 MG CAP PO SCH ×3 (09:21→21:24)
[2022-11-24] MEDS: Potassium Chloride 20 MEQ TAB PO SCH (09:21)
[2022-11-24] MEDS: hydrALAZINE 25 MG TAB PO SCH ×3 (09:22→21:25)
[2022-11-24] MEDS: Folic Acid 1 MG TAB PO SCH (09:22)
[2022-11-24] MEDS: Amlodipine 10 MG TAB PO SCH (09:22)
[2022-11-24] MEDS: Famotidine 20 MG TAB PO SCH ×2 (09:22→21:26)
[2022-11-24] MEDS: Multivit, Therapeutic 1 TAB PO SCH (09:22)
[2022-11-24] MEDS: Furosemide 20 MG TAB PO SCH (09:22)
[2022-11-24] MEDS: Carvedilol 25 MG TAB PO SCH ×2 (09:22→21:26)
[2022-11-24] MEDS: Heparin 5,000 UNITS/ML VIAL SC SCH ×2 (09:22→21:28)
[2022-11-24] MEDS: HumaLOG 300 UNITS/3 ML VIAL SC SCH ×4 (09:23→17:22)
[2022-11-24] MEDS: Methimazole 5 MG TAB PO SCH ×2 (09:23→21:22)
[2022-11-24] MEDS: Sacubitril 24MG/Valsartan 26 MG TAB PO SCH ×2 (09:26→21:22)
[2022-11-24] MEDS: cefTRIAXone\\ROCEPHIN 1 GM in Sodium Chloride 0.9% 100 ML IVPB SCH (11:30)
[2022-11-24] MEDS: Cholestyramine/Aspartame 4 gm Packet PO SCH ×2 (11:30→21:24)
[2022-11-24] MEDS: Lactated Ringer's 1,000 ML IV SCH ×2 (16:33→21:20)
[2022-11-24] MEDS: Floranex 1 GM Packet PO SCH ×2 (16:33→21:21)
[2022-11-24] MEDS: Atorvastatin Calcium 20 MG TAB PO SCH (21:26)
[2022-11-24] MEDS: Insulin Glargine 30 UNITS/0.3 ML VIAL SC SCH (21:31)
[2022-11-25] MEDS: metroNIDAZOLE 500 MG in Premix Bag 1 BAG IVPB SCH ×2 (06:13→14:13)
[2022-11-25 07:31] VITALS: BP 155/74; TEMP 99
[2022-11-25 08:17] LABS: #Monocytes 0.3 thou/uL (0.11-0.59); #Neutrophils 1.3 thou/uL (1.40-6.50); %Basophils 0.4 % (0.0-1.0); %Lymphocytes 38.3 % (21.0-51.0); %Monocytes 11.5 % (0.0-10.0); %Neutrophils 49.4 % (42.0-75.0); Hematocrit 30.2 % (36.0-47.0); Hemoglobin 9.5 g/dL (12.0-16.0); Mean Corpuscular HGB CONC 31.5 g/dL (32.0-36.0); Mean Corpuscular Volume 92.1 fl (78.0-98.0); Mean Platelet Volume 10.1 fL (7.4-10.4); Platelet Count 122 10x3/uL (130-400); RBC Distribution Width 13.5 % (11.5-14.5); Red Blood Cell (RBC) Count 3.28 mill/uL (4.20-5.40); White Blood Cell (WBC) Count 2.6 10x3/uL (4.8-10.8)
[2022-11-25 08:34] LABS: Glucose 116 mg/dL (80-115)
[2022-11-25 08:39] LABS: Anion Gap 14 mmol/L (10-20); BUN (Urea Nitrogen) 23 mg/dL (9.8-20.1); Calc. Creatinine Clearance 42 mL/min (70-130); Calcium 8.6 mg/dL (7.8-10.44); Carbon Dioxide 17 mmol/L (23-31); Chloride 115 mmol/L (98-107); Estimated GFR 46; Glucose 116 mg/dL (80-115); Potassium 3.6 mmol/L (3.5-5.1); Sodium 142 mmol/L (136-145)
[2022-11-25] MEDS: Sacubitril 24MG/Valsartan 26 MG TAB PO SCH (09:29)
[2022-11-25] MEDS: Benzonatate 100 MG CAP PO SCH ×2 (09:30→15:36)
[2022-11-25] MEDS: Methimazole 5 MG TAB PO SCH (09:30)
[2022-11-25] MEDS: Heparin 5,000 UNITS/ML VIAL SC SCH (09:30)
[2022-11-25] MEDS: Multivit, Therapeutic 1 TAB PO SCH (09:31)
[2022-11-25] MEDS: Dicyclomine 10 MG CAP PO SCH ×2 (09:31→15:37)
[2022-11-25] MEDS: Folic Acid 1 MG TAB PO SCH (09:31)
[2022-11-25] MEDS: Cholecalciferol (Vitamin D3) 400 UNITS TAB PO SCH (09:31)
[2022-11-25] MEDS: Carvedilol 25 MG TAB PO SCH (09:31)
[2022-11-25] MEDS: Furosemide 20 MG TAB PO SCH (09:31)
[2022-11-25] MEDS: Zinc Sulfate 220 MG CAP PO SCH (09:31)
[2022-11-25] MEDS: Aspirin 81 mg Enteric Coated Tablet PO SCH (09:31)
[2022-11-25] MEDS: Empagliflozin 10 MG TAB PO SCH (09:31)
[2022-11-25] MEDS: Famotidine 20 MG TAB PO SCH (09:31)
[2022-11-25] MEDS: HumaLOG 300 UNITS/3 ML VIAL SC SCH ×2 (09:32→12:13)
[2022-11-25] MEDS: Floranex 1 GM Packet PO SCH ×2 (09:32→15:35)
[2022-11-25] MEDS: hydrALAZINE 25 MG TAB PO SCH ×2 (09:32→15:37)
[2022-11-25] MEDS: Amlodipine 10 MG TAB PO SCH (09:32)
[2022-11-25] MEDS: Potassium Chloride 20 MEQ TAB PO SCH (09:32)
[2022-11-25] MEDS: Lactated Ringer's 1,000 ML IV SCH (09:33)
[2022-11-25] MEDS: HYDROcodone/Acetaminophen 5/325 mg Tablet PO PRN (09:55)
[2022-11-25] MEDS: Cholestyramine/Aspartame 4 gm Packet PO SCH (10:30)
[2022-11-25] MEDS: cefTRIAXone\\ROCEPHIN 1 GM in Sodium Chloride 0.9% 100 ML IVPB SCH (12:13)
== END 2022-11-25 16:44 | disposition home or self-care (01) | DRG 178 ==
LOC: ERS 08:44 → ERHOLD 12:08 → T4-B 14:59 → OBSVTOIN 11-25 13:30
PROVIDERS: ADMIT Hospitalist; ATTEND Hospitalist
DX: U07.1 COVID-19 (principal); E87.20 Acidosis, unspecified; N17.9 Acute kidney failure, unspecified; N39.0 Urinary tract infection, site not specified; I50.32 Chronic diastolic (congestive) heart failure; I11.0 Hypertensive heart disease with heart failure; H54.7 Unspecified visual loss; E04.9 Nontoxic goiter, unspecified; E11.9 Type 2 diabetes mellitus without complications; E05.00 Thyrotoxicosis with diffuse goiter without thyrotoxic crisis or storm; F19.10 Other psychoactive substance abuse, uncomplicated; E87.6 Hypokalemia; E07.89 Other specified disorders of thyroid; F41.9 Anxiety disorder, unspecified; F32.A Depression, unspecified; Z98.51 Tubal ligation status; Z79.4 Long term (current) use of insulin; Z79.2 Long term (current) use of antibiotics; Z79.899 Other long term (current) drug therapy; Z90.49 Acquired absence of other specified parts of digestive tract; Z98.890 Other specified postprocedural states; Z82.49 Family history of ischemic heart disease and other diseases of the circulatory system
CPT/HCPCS: 36415; 36416; 71045; 74177; 80053; 80061; 81001; 82550; 82728; 82947; 83036; 83540; 83550; 83605; 83690; 83735; 84436; 84443; 85025; 87086; 87324; 87328; 87329; 87449; 87505; 93005; 96361; 96374; 96375; J0696; J1644; J1815; J2405; J3475; J3490; J7120; Q9967

== ENCOUNTER 2022-11-28 21:02 | Emergency (ER) | payer OTHER ==
[2022-11-28 22:39] LABS: Hematocrit 28.9 % (36.0-47.0); Hemoglobin 9.3 g/dL (12.0-16.0); Mean Corpuscular HGB CONC 32.2 g/dL (32.0-36.0); Mean Corpuscular Hemoglobin 28.7 pg (27.0-31.0); Mean Corpuscular Volume 89.2 fl (78.0-98.0); Mean Platelet Volume 10.5 fL (7.4-10.4); Platelet Count 164 10x3/uL (130-400); RBC Distribution Width 13.2 % (11.5-14.5); Red Blood Cell (RBC) Count 3.24 mill/uL (4.20-5.40); White Blood Cell (WBC) Count 4.1 10x3/uL (4.8-10.8)
[2022-11-28 22:48] LABS: Delete Auto Diff?? YES; Manual Diff?? YES
[2022-11-28 23:04] LABS: ALT (SGPT) 101 U/L (8-55); AST (SGOT) 88 U/L (5-34); Albumin 2.6 g/dL (3.4-4.8); Alkaline Phosphatase 61 U/L (40-110); Anion Gap 12 mmol/L (10-20); BUN (Urea Nitrogen) 18 mg/dL (9.8-20.1); Bilirubin, Total 0.2 mg/dL (0.2-1.2); Calc. Creatinine Clearance 0 mL/min (70-130); Calcium 8.3 mg/dL (7.8-10.44); Carbon Dioxide 22 mmol/L (23-31); Chloride 113 mmol/L (98-107); Estimated GFR 37; Globulin 3.2 g/dL (2.4-3.5); Glucose 162 mg/dL (80-115); Magnesium 1.5 mg/dL (1.6-2.6); Potassium 3.5 mmol/L (3.5-5.1); Protein, Total 5.8 g/dL (5.8-8.1); Sodium 143 mmol/L (136-145)
[2022-11-28 23:08] LABS: Anisocytosis SLIGHT = 6-15 cells HPF (0-5); Band 6 % (5-11); CellaVision Operator ID LAB.JMM; Lymphocytes 15 % (21-51); Monocytes 12 % (0-10); Neutrophil 67 % (42-75); Platelet Adequacy Comment Platelets Normal; Smudge Cells 12.9 %; Total Cell Count 101
[2022-11-29] MEDS ORDERED: Loperamide HCl 2 MG CAP ONE (00:02)
[2022-11-29 01:31] LABS: Bacteria/HPF None Seen HPF (None Seen); Bilirubin Negative (Negative); Blood, Urine 1+ (Negative); CAUTI Indications for Culture Dysuria,urgency,freq; Clarity Clear (Clear); Glucose, Urine (Dipstick) 300 mg/dL (Negative); Ketone, Urine Negative (Negative); Leukocyte Negative Leu/uL (Negative); Nitrite Negative (Negative); Protein, Urine (Dipstick) 300 mg/dL (Neg-Trace); RBC/HPF 0-3 HPF (0-3); Specific Gravity, Urine 1.014 (1.002-1.036); Squamous Epithelial 0-3 HPF (0-3); Urine Culture Reflex No No; Urobilinogen Normal mg/dL (Less than 2); WBC/HPF 0-3 HPF (0-3); pH, Urine 6.5 (5.0-9.0)
== END 2022-11-29 02:05 | disposition home or self-care (01) ==
LOC: ERS 21:02
DX: K52.9 Noninfective gastroenteritis and colitis, unspecified (principal); E11.9 Type 2 diabetes mellitus without complications; I10 Essential (primary) hypertension; F17.210 Nicotine dependence, cigarettes, uncomplicated; Z79.4 Long term (current) use of insulin; Z79.899 Other long term (current) drug therapy
CPT/HCPCS: 80053; 81001; 83605; 83735; 84436; 84443; 85025; 96360

== ENCOUNTER 2022-12-17 09:38 | Inpatient (IN) | payer OTHER ==
[2022-12-17] MEDS ORDERED: Iopamidol 370 76% 100 ML VIAL ONE (10:32)
[2022-12-17 10:53] LABS: SARS-CoV-2 NAA Rapid Test Not Detected (NotDetected)
[2022-12-17 11:13] LABS: #Monocytes 0.4 thou/uL (0.11-0.59); #Neutrophils 3.3 thou/uL (1.40-6.50); %Lymphocytes 23.3 % (21.0-51.0); %Monocytes 8.8 % (0.0-10.0); %Neutrophils 67.7 % (42.0-75.0); Hematocrit 26.3 % (36.0-47.0); Hemoglobin 8.2 g/dL (12.0-16.0); Mean Corpuscular HGB CONC 31.2 g/dL (32.0-36.0); Mean Corpuscular Hemoglobin 29.7 pg (27.0-31.0); Mean Corpuscular Volume 95.3 fl (78.0-98.0); Mean Platelet Volume 9.8 fL (7.4-10.4); Platelet Count 171 10x3/uL (130-400); RBC Distribution Width 16.1 % (11.5-14.5); Red Blood Cell (RBC) Count 2.76 mill/uL (4.20-5.40); White Blood Cell (WBC) Count 4.9 10x3/uL (4.8-10.8)
[2022-12-17 11:29] LABS: Actual Bicarbonate (HCO3v) 17.9 mEq/L (22-28); Base Excess -7.6 mEq/L (-2.0 to +3.0); Calcium, Ionized (venous) 1.06 mmol/L (1.16-1.32); Chloride (VBG) 112 mmol/L (98-106); Hematocrit-VBG 31 % (36.0-47.0); Hemoglobin (Hb) 10.6 g/dL (11.7-16.0); Potassium (VBG) 2.72 mmol/L (3.70-5.30); Sodium 141.2 mmol/L (133-146); pH (venous) 7.311 (7.32-7.43)
[2022-12-17 11:42] LABS: ALT (SGPT) 17 U/L (8-55); AST (SGOT) 22 U/L (5-34); Albumin 2.4 g/dL (3.4-4.8); Alkaline Phosphatase 67 U/L (40-110); Anion Gap 10 mmol/L (10-20); BUN (Urea Nitrogen) 17 mg/dL (9.8-20.1); Bilirubin, Total 0.3 mg/dL (0.2-1.2); CK (CPK) 52 U/L (29-168); Calc. Creatinine Clearance 0 mL/min (70-130); Calcium 7.2 mg/dL (7.8-10.44); Carbon Dioxide 18 mmol/L (23-31); Chloride 116 mmol/L (98-107); Estimated GFR 89; Globulin 2.8 g/dL (2.4-3.5); Glucose 172 mg/dL (80-115); Lipase 93 U/L (8-78); Magnesium 1.3 mg/dL (1.6-2.6); Protein, Total 5.2 g/dL (5.8-8.1); Sodium 142 mmol/L (136-145)
[2022-12-17 11:46] LABS: Troponin I 0.078 ng/mL (< 0.028)
[2022-12-17 11:48] LABS: Potassium 2.4 mmol/L (3.5-5.1)
[2022-12-17 12:02] LABS: Bacteria/HPF None Seen HPF (None Seen); Bilirubin Negative (Negative); Blood, Urine 1+ (Negative); CAUTI Indications for Culture Alt mental st,lethar; Clarity Clear (Clear); Glucose, Urine (Dipstick) 300 mg/dL (Negative); Ketone, Urine Negative (Negative); Leukocyte Negative Leu/uL (Negative); Nitrite Negative (Negative); Protein, Urine (Dipstick) 200 mg/dL (Neg-Trace); RBC/HPF None Seen HPF (0-3); Specific Gravity, Urine 1.007 (1.002-1.036); Squamous Epithelial None Seen HPF (0-3); Urobilinogen Normal mg/dL (Less than 2); WBC/HPF 0-3 HPF (0-3)
[2022-12-17 12:08] LABS: Urine Culture Reflex No No
[2022-12-17] MEDS ORDERED: Magnesium 2 GM/50 ML BAG (IN WATER) ONE (12:41)
[2022-12-17] MEDS ORDERED: Potassium Chloride 20 MEQ/100 ML PREMIX BAG ONE ×2 (12:41→13:16)
[2022-12-17] MEDS ORDERED: Potassium Chloride 20 MEQ TAB ONE (12:41)
[2022-12-17] MEDS ORDERED: Dextrose 5% in Water 1,000 ML IV PRN (13:18)
[2022-12-17] MEDS ORDERED: Dextrose 50% Abboject 50 ML SYRINGE SLOW IVP PRN (13:18)
[2022-12-17] MEDS ORDERED: HumaLOG 300 UNITS/3 ML VIAL SC PRN (13:18)
[2022-12-17] MEDS ORDERED: Glucagon 1 MG/ML KIT IM PRN (13:18)
[2022-12-17] MEDS ORDERED: Artificial Tear Sol 15 ML BOT EA EYE PRN (13:21)
[2022-12-17] MEDS ORDERED: Acetaminophen 650 MG Suppository PR PRN (13:23)
[2022-12-17] MEDS ORDERED: Nicotine 14 MG PATCH TD PRN (13:23)
[2022-12-17] MEDS ORDERED: Ondansetron PF 4 MG/2 ML Vial IVP PRN (13:23)
[2022-12-17] MEDS ORDERED: Ondansetron ODT 4 MG TAB PO PRN (13:23)
[2022-12-17] MEDS ORDERED: Acetaminophen 325 MG TAB PO PRN (13:23)
[2022-12-17] MEDS ORDERED: Electrolyte Replacement Protocol 1 EACH FS SCH (13:30)
[2022-12-17] MEDS ORDERED: hydrALAZINE 20 MG/ML VIAL SLOW IVP SCH ×2 (13:30→15:15)
[2022-12-17] MEDS ORDERED: Magnesium 2 GM/50 ML(in water) 2 GM in Premix Bag 1 BAG IVPB SCH ×2 (14:00→22:00)
[2022-12-17] MEDS: Furosemide 40 MG/4 ML VIAL SLOW IVP SCH (14:37)
[2022-12-17] MEDS: Carvedilol 25 MG TAB PO SCH (17:46)
[2022-12-17 18:48] LABS: Anion Gap 16 mmol/L (10-20); BUN (Urea Nitrogen) 20 mg/dL (9.8-20.1); Calc. Creatinine Clearance 58 mL/min (70-130); Calcium 9.4 mg/dL (7.8-10.44); Carbon Dioxide 20 mmol/L (23-31); Chloride 108 mmol/L (98-107); Estimated GFR 70; Glucose 204 mg/dL (80-115); Magnesium 1.9 mg/dL (1.6-2.6); Potassium 3.7 mmol/L (3.5-5.1); Sodium 140 mmol/L (136-145)
[2022-12-17] MEDS: Sacubitril 24MG/Valsartan 26 MG TAB PO SCH (20:58)
[2022-12-17] MEDS: Methimazole 5 MG TAB PO SCH (20:58)
[2022-12-17] MEDS: Famotidine 20 MG TAB PO SCH (20:59)
[2022-12-17] MEDS: Atorvastatin Calcium 20 MG TAB PO SCH (20:59)
[2022-12-17] MEDS: hydrALAZINE 25 MG TAB PO SCH (20:59)
[2022-12-17 21:02] LABS: Troponin I 0.103 ng/mL (< 0.028)
[2022-12-18 05:07] LABS: #Eosinphils 0.1 thou/uL (0.0-0.7); #Neutrophils 4.3 thou/uL (1.40-6.50); %Basophils 0.1 % (0.0-1.0); %Eosinophils 0.7 % (0.0-10.0); %Lymphocytes 25.2 % (21.0-51.0); %Monocytes 14.3 % (0.0-10.0); %Neutrophils 59.4 % (42.0-75.0); Hematocrit 27.2 % (36.0-47.0); Hemoglobin 8.8 g/dL (12.0-16.0); Mean Corpuscular HGB CONC 32.4 g/dL (32.0-36.0); Mean Corpuscular Hemoglobin 29.8 pg (27.0-31.0); Mean Platelet Volume 10.3 fL (7.4-10.4); Platelet Count 205 10x3/uL (130-400); RBC Distribution Width 16.1 % (11.5-14.5); Red Blood Cell (RBC) Count 2.95 mill/uL (4.20-5.40); White Blood Cell (WBC) Count 7.2 10x3/uL (4.8-10.8)
[2022-12-18 05:35] LABS: Anion Gap 15 mmol/L (10-20); BUN (Urea Nitrogen) 23 mg/dL (9.8-20.1); Calc. Creatinine Clearance 43 mL/min (70-130); Carbon Dioxide 21 mmol/L (23-31); Chloride 108 mmol/L (98-107); Estimated GFR 48; Glucose 155 mg/dL (80-115); Magnesium 2.5 mg/dL (1.6-2.6); Phosphorus 4.6 mg/dL (2.3-4.7); Potassium 3.5 mmol/L (3.5-5.1); Sodium 140 mmol/L (136-145)
[2022-12-18] MEDS: Furosemide 40 MG/4 ML VIAL SLOW IVP SCH ×3 (05:36→14:27)
[2022-12-18 05:47] LABS: Mean Corpuscular Volume 92.2 fl (78.0-98.0)
[2022-12-18] MEDS ORDERED: Potassium Chloride 20 MEQ TAB PO SCH ×2 (08:00→08:30)
[2022-12-18] MEDS: Potassium Chloride 20 MEQ TAB PO SCH (08:42)
[2022-12-18] MEDS: Amlodipine 10 MG TAB PO SCH (08:42)
[2022-12-18] MEDS: hydrALAZINE 25 MG TAB PO SCH ×3 (08:43→20:50)
[2022-12-18] MEDS: Empagliflozin 10 MG TAB PO SCH (08:43)
[2022-12-18] MEDS: Methimazole 5 MG TAB PO SCH ×2 (08:43→20:51)
[2022-12-18] MEDS: Aspirin Chewable 81 MG TAB PO SCH (08:43)
[2022-12-18] MEDS: Multivit, Therapeutic 1 TAB PO SCH (08:43)
[2022-12-18] MEDS: Carvedilol 25 MG TAB PO SCH ×2 (08:43→20:50)
[2022-12-18] MEDS: Famotidine 20 MG TAB PO SCH ×2 (08:43→20:50)
[2022-12-18] MEDS: Sacubitril 24MG/Valsartan 26 MG TAB PO SCH ×2 (08:44→20:52)
[2022-12-18] MEDS ORDERED: predniSONE 20 MG TAB PO SCH (14:15)
[2022-12-18 15:47] VITALS: BMI 19.8
[2022-12-18] MEDS: HumaLOG 300 UNITS/3 ML VIAL SC PRN (17:44)
[2022-12-18] MEDS: Atorvastatin Calcium 20 MG TAB PO SCH (20:50)
[2022-12-19 05:07] LABS: #Monocytes 0.7 thou/uL (0.11-0.59); #Neutrophils 4.3 thou/uL (1.40-6.50); %Lymphocytes 17.4 % (21.0-51.0); %Monocytes 11.2 % (0.0-10.0); %Neutrophils 71.4 % (42.0-75.0); Hemoglobin 8.6 g/dL (12.0-16.0); Mean Corpuscular HGB CONC 31.9 g/dL (32.0-36.0); Mean Corpuscular Hemoglobin 29.2 pg (27.0-31.0); Mean Corpuscular Volume 91.5 fl (78.0-98.0); Mean Platelet Volume 10.5 fL (7.4-10.4); Platelet Count 208 10x3/uL (130-400); RBC Distribution Width 15.9 % (11.5-14.5); Red Blood Cell (RBC) Count 2.95 mill/uL (4.20-5.40)
[2022-12-19 05:47] LABS: Troponin I 0.043 ng/mL (< 0.028)
[2022-12-19 06:12] LABS: Anion Gap 16 mmol/L (10-20); BUN (Urea Nitrogen) 35 mg/dL (9.8-20.1); Calc. Creatinine Clearance 25 mL/min (70-130); Calcium 9.2 mg/dL (7.8-10.44); Carbon Dioxide 21 mmol/L (23-31); Chloride 103 mmol/L (98-107); Estimated GFR 25; Glucose 244 mg/dL (80-115); Potassium 4.6 mmol/L (3.5-5.1); Sodium 135 mmol/L (136-145)
[2022-12-19] MEDS: Furosemide 40 MG/4 ML VIAL SLOW IVP SCH (06:14)
[2022-12-19] MEDS: HumaLOG 300 UNITS/3 ML VIAL SC PRN ×2 (06:14→17:18)
[2022-12-19] MEDS ORDERED: predniSONE 20 MG TAB PO SCH (08:00)
[2022-12-19] MEDS: Lactated Ringer's 500 ML IV SCH ×2 (09:58→19:44)
[2022-12-19] MEDS: Potassium Chloride 20 MEQ TAB PO SCH (10:03)
[2022-12-19] MEDS: Amlodipine 10 MG TAB PO SCH (10:04)
[2022-12-19] MEDS: Aspirin Chewable 81 MG TAB PO SCH (10:04)
[2022-12-19] MEDS: hydrALAZINE 25 MG TAB PO SCH ×3 (10:05→19:46)
[2022-12-19] MEDS: Empagliflozin 10 MG TAB PO SCH (10:05)
[2022-12-19] MEDS: Methimazole 5 MG TAB PO SCH (10:05)
[2022-12-19] MEDS: Carvedilol 25 MG TAB PO SCH ×2 (10:05→19:47)
[2022-12-19] MEDS: Sacubitril 24MG/Valsartan 26 MG TAB PO SCH ×2 (10:05→19:46)
[2022-12-19] MEDS: Multivit, Therapeutic 1 TAB PO SCH (10:05)
[2022-12-19] MEDS: Famotidine 20 MG TAB PO SCH (13:17)
[2022-12-19] MEDS ORDERED: Atenolol 25 MG TAB PO SCH (15:45)
[2022-12-19] MEDS: Atorvastatin Calcium 20 MG TAB PO SCH (19:46)
[2022-12-19] MEDS ORDERED: Methimazole 5 MG TAB PO SCH (21:00)
[2022-12-19] MEDS ORDERED: Famotidine 20 MG TAB PO SCH (21:00)
[2022-12-20 00:36] LABS: #Monocytes 0.6 thou/uL (0.11-0.59); #Neutrophils 4.2 thou/uL (1.40-6.50); %Lymphocytes 15.8 % (21.0-51.0); %Monocytes 10.7 % (0.0-10.0); %Neutrophils 73.2 % (42.0-75.0); Hematocrit 27.5 % (36.0-47.0); Mean Corpuscular HGB CONC 32.7 g/dL (32.0-36.0); Mean Corpuscular Hemoglobin 29.1 pg (27.0-31.0); Platelet Count 193 10x3/uL (130-400); RBC Distribution Width 15.6 % (11.5-14.5); Red Blood Cell (RBC) Count 3.09 mill/uL (4.20-5.40); White Blood Cell (WBC) Count 5.8 10x3/uL (4.8-10.8)
[2022-12-20 01:09] LABS: BUN (Urea Nitrogen) 44 mg/dL (9.8-20.1); Calc. Creatinine Clearance 22 mL/min (70-130); Calcium 9.1 mg/dL (7.8-10.44); Chloride 103 mmol/L (98-107); Estimated GFR 21; Glucose 255 mg/dL (80-115); Magnesium 2.4 mg/dL (1.6-2.6); Potassium 4.7 mmol/L (3.5-5.1); Sodium 134 mmol/L (136-145)
[2022-12-20 01:45] LABS: Anion Gap 14 mmol/L (10-20); Carbon Dioxide 21 mmol/L (23-31)
[2022-12-20 03:28] VITALS: BP 145/81; TEMP 98
[2022-12-20] MEDS ORDERED: Sterile Water 10 ML VIAL FS PRN (03:30)
[2022-12-20] MEDS ORDERED: OLANZapine 10 MG VIAL IM SCH (03:45)
[2022-12-20] MEDS ORDERED: Atenolol 25 MG TAB PO SCH (09:00)
== END 2022-12-20 03:49 | disposition left against medical advice (07) | DRG 291 ==
LOC: ERS 09:38 → 2SW 12:28 → OBSVTOIN 12-18 11:10
PROVIDERS: ADMIT Internal Medicine; ATTEND Internal Medicine
PROC: 0CJS8ZZ Inspection of Larynx, Via Natural or Artificial Opening Endoscopic (ICD-10-PCS; principal; 2022-12-19)
DX: I11.0 Hypertensive heart disease with heart failure (principal); I50.33 Acute on chronic diastolic (congestive) heart failure; E87.20 Acidosis, unspecified; N17.9 Acute kidney failure, unspecified; E11.9 Type 2 diabetes mellitus without complications; E78.5 Hyperlipidemia, unspecified; H54.7 Unspecified visual loss; E05.00 Thyrotoxicosis with diffuse goiter without thyrotoxic crisis or storm; E87.6 Hypokalemia; E83.42 Hypomagnesemia; E06.9 Thyroiditis, unspecified; D63.8 Anemia in other chronic diseases classified elsewhere; R13.10 Dysphagia, unspecified; Z86.16 Personal history of COVID-19; Z79.899 Other long term (current) drug therapy; Z71.6 Tobacco abuse counseling; Z79.4 Long term (current) use of insulin; Z79.82 Long term (current) use of aspirin; Z86.73 Personal history of transient ischemic attack (TIA), and cerebral infarction without residual deficits; Z90.49 Acquired absence of other specified parts of digestive tract; Z98.890 Other specified postprocedural states; Z82.49 Family history of ischemic heart disease and other diseases of the circulatory system; Z87.891 Personal history of nicotine dependence; Z20.822 Contact with and (suspected) exposure to COVID-19
CPT/HCPCS: 36415; 36416; 70450; 71045; 74177; 76536; 80048; 80053; 81001; 82550; 82805; 83605; 83690; 83735; 83880; 84100; 84439; 84443; 84484; 85025; 87040; 87086; 93005; 93798; 96361; 96365; J0360; J1650; J1815; J1940; J2405; J3475; J3480; J7120; J7512; Q9967